=== PATIENT | male | born 1960 ===

== ENCOUNTER 2019-12-21 17:38 | Emergency (ER) | payer SELFPAY ==
[~2019-12-21] VITALS: Ht 188 cm; Wt 136.4 kg
[2019-12-21] MEDS ORDERED: erythromycin ophthalmic ointment 1gm tube EACHEYE ONE (18:55)
[2019-12-21] MEDS ORDERED: ibuprofen tablet 400 MG TABLET PO ONE (18:55)
[2019-12-21] MEDS ORDERED: IBUP-1984 PO (18:56)
[2019-12-21] MEDS ORDERED: ERYT1OIN6 EACHEYE (18:56)
[2019-12-21 19:22] VITALS: BP 131/109
== END 2019-12-21 19:23 | disposition home or self-care (01) ==
LOC: ER 17:40
DX: H10.33 Unspecified acute conjunctivitis, bilateral (principal); M25.571 Pain in right ankle and joints of right foot; I50.9 Heart failure, unspecified; I11.0 Hypertensive heart disease with heart failure; J44.9 Chronic obstructive pulmonary disease, unspecified; Z59.0 Homelessness; Z88.5 Allergy status to narcotic agent; Z79.899 Other long term (current) drug therapy
CPT/HCPCS: 73610; 99283